=== PATIENT | female | born 1970 | race Caucasian/White ===

== ENCOUNTER 2019-07-10 13:00 | Outpatient (CLI) | payer OTHER ==
--- NOTE | 2019-07-10 14:51 | RAD ---
LUMBAR SPINE SERIES FOUR VIEWS: 07/10/19 HISTORY: Low back pain. Vertebral bodies are normal in height. There is marked disc narrowing at the L4-5 level. I do not getachew reciate any abnormal motion on the flexion or extension views. IMPRESSION: Marked degenerative disc narrowing at L4-5. POS: LUCIEN
== END 2019-07-10 13:01 | disposition home or self-care (01) ==
LOC: TBSIIMAG 13:00
PROVIDERS: ATTEND Neurological Surgery
DX: M54.5 Low back pain (principal); M51.36 Other intervertebral disc degeneration, lumbar region; M48.061 Spinal stenosis, lumbar region without neurogenic claudication
CPT/HCPCS: 72110

== ENCOUNTER 2019-12-07 14:10 | Outpatient (CLI) | payer OTHER ==
--- NOTE | 2019-12-07 14:28 | RAD ---
EXAM: 4 views of the lumbosacral spine HISTORY: Lumbar radiculopathy COMPARISON: 07/10/2019 FINDINGS: 4 views of the lumbosacral spine shows normal height and alignment of the vertebral bodies and intervertebral discs without fracture or subluxation. There is joint space narrowing of the L4/5 disc space with small surrounding osteophytes. Alignment is unchanged with flexion and extensio n. The sacroiliac joints are unremarkable. IMPRESSION: Degenerative changes at L4/5 with unchanged alignment with bending
== END 2019-12-07 14:11 | disposition home or self-care (01) ==
LOC: BICRAD 14:10
PROVIDERS: ATTEND Neurological Surgery
DX: M47.26 Other spondylosis with radiculopathy, lumbar region (principal)
CPT/HCPCS: 72110

== ENCOUNTER 2020-01-24 13:14 | Outpatient (CLI) | payer OTHER ==
--- NOTE | 2020-01-24 14:49 | MRI ---
EXAM: MRI lumbar spine without and with contrast HISTORY: Postlaminectomy syndrome with low back pain COMPARISON: 10/06/2016 TECHNIQUE: Multiple planar multisequence MR images were obtained of the lumbar spine without and with contrast. FINDINGS: The vertebral demonstrate normal height and alignment without fracture or subluxation. There is disc desiccation and decreased height of the L4/5 intervertebral disc. Endplate degenerative changes are seen surrounding the L4/5 disc. There is enhancement and edema in the left paraspinal musculature. The conus medullaris terminates normally at T12/L1. No abnormal enhancement is seen on this examination within the central canal. T12/L1: No significant posterior bulge or protrusion. No posterior facet arthrosis. No central chrissy l stenosis. No neural foraminal stenosis L1/2: No significant posterior bulge or protrusion. No posterior facet arthrosis. No central canal stenosis. No neural foraminal stenosis L2/3: No significant posterior bulge or protrusion. No posterior facet arthrosis. No central canal stenosis. No neural foraminal stenosis L3/4: There is a small stable central protrusion. No posterior facet arthrosis. Mild central canal stenosis. No neural foraminal stenosis L4/5: There is a small disc osteophyte complex. No posterior facet arthrosis. No central canal sten osis. Moderate bilateral neural foraminal stenosis L5/S1: No significant posterior bulge or protrusion. No posterior facet arthrosis. No central canal stenosis. No neural foraminal stenosis IMPRESSION: Degenerative changes of the lumbar spine as above.
== END 2020-01-24 13:15 | disposition home or self-care (01) ==
LOC: SCSMRI 13:14
PROVIDERS: ATTEND Nurse Practitioner Family
DX: M96.1 Postlaminectomy syndrome, not elsewhere classified (principal); M47.816 Spondylosis without myelopathy or radiculopathy, lumbar region
CPT/HCPCS: 72158

== ENCOUNTER 2023-03-08 10:45 | Outpatient (CLI) | payer BC | END 2023-03-08 10:46 | disposition home or self-care (01) | LOC: BICRAD 10:45 | PROVIDERS: ATTEND Nurse Practitioner Family | DX: M47.817 Spondylosis without myelopathy or radiculopathy, lumbosacral region (principal); M46.1 Sacroiliitis, not elsewhere classified | CPT/HCPCS: 72120 ==

== ENCOUNTER 2023-04-28 07:43 | Outpatient (CLI) | payer BC | END 2023-04-28 07:44 | disposition home or self-care (01) | LOC: SCSMRI 07:43 | PROVIDERS: ATTEND Specialist | DX: M51.16 Intervertebral disc disorders with radiculopathy, lumbar region (principal); M47.26 Other spondylosis with radiculopathy, lumbar region | CPT/HCPCS: 72148 ==